=== PATIENT | male | born 1950 | race Caucasian/White ===

== ENCOUNTER 2021-10-09 20:13 | Inpatient (IN) | payer MEDICARE, BC ==
[~2021-10-09] VITALS: Ht 175.3 cm; Wt 101.6 kg
--- NOTE | 2021-10-09 20:21 | NUR ---
Pt states he is not actively suicidal and does not have any intent to commit suicide
[2021-10-09] MEDS ORDERED: SITA1TAB6 PO (20:55)
[2021-10-09] MEDS ORDERED: FEXO-65 PO (20:55)
[2021-10-09] MEDS ORDERED: EMPA25TA PO (20:55)
[2021-10-09] MEDS ORDERED: LISI10TA29 PO (20:55)
[2021-10-09] MEDS ORDERED: ASPI-612 PO (20:55)
[2021-10-09] MEDS ORDERED: NORCO PO (20:55)
[2021-10-09] MEDS ORDERED: CLOP75TA33 PO (20:55)
[2021-10-09] MEDS ORDERED: GUAI600T53 PO (20:55)
[2021-10-09] MEDS ORDERED: GLIM4TAB37 PO (20:55)
[2021-10-09] MEDS ORDERED: ESCI-9 PO (20:55)
[2021-10-09] MEDS ORDERED: THEO600T5 PO (20:55)
[2021-10-09] MEDS ORDERED: MAGN400O6 PO (20:55)
[2021-10-09] MEDS ORDERED: ATOR80TA PO (20:55)
[2021-10-09] MEDS ORDERED: OMEG-153 PO (20:55)
[2021-10-09] MEDS ORDERED: SENN-261 PO (20:55)
[2021-10-09] MEDS ORDERED: NITR0.4T SL (20:55)
[2021-10-09] MEDS ORDERED: ALPR0.5T8 PO (20:55)
[2021-10-09] MEDS ORDERED: TRIA1CAP6 PO (20:55)
[2021-10-09] MEDS ORDERED: FAMO20TA8 PO (20:55)
[2021-10-09] MEDS ORDERED: PANT40TA49 PO (20:55)
[2021-10-09] MEDS ORDERED: TAMS-3 PO (20:55)
[2021-10-09] MEDS ORDERED: METO-357 PO (20:55)
[2021-10-09] MEDS ORDERED: TRAZ-257 PO (20:55)
[2021-10-09] MEDS ORDERED: OLAN5TAB3 PO (20:55)
[2021-10-09] MEDS ORDERED: ALPR0.255 PO (20:55)
[2021-10-09] MEDS ORDERED: LOPE2CAP PO (20:55)
[2021-10-09] MEDS ORDERED: AMOX500C2 PO (20:55)
[2021-10-09 21:01] LABS: HEMATOCRIT 36.5 % (36.7-47.1); MEAN CORPUSCULAR HEMOGLOBIN 35.3 uug (23.8-33.4); MEAN CORPUSCULAR VOLUME 100.2 fL (73.0-96.2); PLATELET COUNT (AUTO) 302 K/uL (152-348)
[2021-10-09 21:07] LABS: CREATININE 1.2 mg/dL (0.6-1.3); POTASSIUM 4.2 mmol/L (3.5-5.1)
[2021-10-09] MEDS ORDERED: MAGNESIUM SULFATE/D5W 100 ML ONE ×3 (21:46→23:20)
[2021-10-09] MEDS: MAGNESIUM SULFATE/D5W 100 ML IV SCH ×3 (22:11→23:28)
--- NOTE | 2021-10-09 22:35 | NUR ---
CALLED CRISIS TEAM AND SPOKE WITH SAMIR "I'LL BE ON MY WAY".
[2021-10-10] MEDS ORDERED: NITROGLYCERIN 0.4 MG/TAB BOTTLE SL PRN (00:30)
[2021-10-10] MEDS ORDERED: LORAZEPAM 0.5 MG TABLET PO ONE (01:00)
[2021-10-10] MEDS ORDERED: LORAZEPAM 1 MG TABLET ONE (01:20)
[2021-10-10 01:22] LABS: *BILIRUBIN,URIN NEGATIVE (NEGATIVE); *BLOOD, URINE 1+ (NEGATIVE); *CLARITY,URINE CLEAR (CLEAR); *COLOR,URINE YELLOW (YELLOW); *KETONES,URINE NEGATIVE (NEGATIVE); *UROBILINOGEN,URINE 0.2 E.U./dl (NORMAL); LEUKOCYTE ESTERASE ,URINE NEGATIVE (NEGATIVE); NITRITE, URINE NEGATIVE (NEGATIVE); UGLUCOSE NEGATIVE (NEGATIVE)
--- NOTE | 2021-10-10 01:37 | NUR ---
IV removed. Catheter intact and site benign. Pressure and 4x4 gauze applied to site. No bleeding noted.
[2021-10-10 01:38] LABS: BACTERIA,URINE NONE SEEN /HPF (NONE SEEN); SQUAMOUS EPITHELIAL CELL,UR FEW /HPF (NONE SEEN); WBC,URINE 0-3 /HPF (0-3)
--- NOTE | 2021-10-10 01:40 | NUR ---
Report given to Daja
[2021-10-10 02:30] VITALS: BP 126/81
--- NOTE | 2021-10-10 02:35 | NUR ---
ADMISSION NOTE: 71 years old male admitted to MHU room 137-A from the ER accompanied by nursing staff in a wheelchair. patient's belongings and valuables were inventoried with patient and placed in contraband locker. Patient admitted with multiple medication which was inventoried by nursing staff, sealed in envelop, and sent to pharmacy. Patient's skin assessment completed by nursing staff, skin is intact. Patient provided with patient's rights handbook and 5150 hold advisement. Upon [id number] assessment, patient is depressed, but cooperative. Patient denies suicidal and homicidal ideation. Patient states he has multiple deaths in the family, and for that reasons is depressed. Patient is able to contract for safety. Patient is alert and oriented x3. he denies hallucinations of any type. Patient denies a current or history of tobacco use. Denies recreation drug use.
[2021-10-10] MEDS ORDERED: MAGNESIUM HYDROXIDE 30 ML LIQUID UDC PO PRN (03:00)
[2021-10-10] MEDS ORDERED: MAG HYDROX/AL HYDROX/SIMETH 30 ML LIQUID UDC PO PRN (03:00)
[2021-10-10] MEDS ORDERED: BLOOD SUGAR DIAGNOSTIC 1 EACH STRIP VI ONE (03:00)
[2021-10-10] MEDS: PANTOPRAZOLE SODIUM 40 MG TABLET.DR PO SCH (06:35)
[2021-10-10] MEDS: AMOXIcillin 500 MG CAPSULE PO SCH ×3 (06:35→20:40)
[2021-10-10] MEDS ORDERED: AMOXicillin 250 MG CAPSULE ONE (06:41)
--- NOTE | 2021-10-10 06:48 | NUR ---
remain calm and cooperative. slept 1.30 hrs through the night.
[2021-10-10 07:30] VITALS: BP 107/61
[2021-10-10] MEDS: LINAGLIPTIN 5 MG TABLET PO SCH (08:50)
[2021-10-10] MEDS: CLOPIDOGREL 75 MG TABLET PO SCH (08:50)
[2021-10-10] MEDS: METFORMIN HCL 500 MG TABLET PO SCH ×2 (08:50→17:02)
[2021-10-10] MEDS: ASPIRIN 325 MG TABLET PO SCH (08:50)
[2021-10-10] MEDS: EMPAGLIFLOZIN 25 MG PO SCH (08:51)
[2021-10-10] MEDS: [UNRECOGNIZED DRUG - OTHER] PO SCH (08:51)
[2021-10-10] MEDS: METOPROLOL SUCCINATE XL 50 MG TAB.SR.24H PO SCH (08:51)
[2021-10-10] MEDS: FAMOTIDINE 20 MG TABLET PO SCH (08:51)
[2021-10-10] MEDS ORDERED: Empagliflozin (Jardiance) 25 MG) PO SCH (09:00)
[2021-10-10] MEDS ORDERED: GLIMEPIRIDE 4 MG TABLET PO SCH (09:00)
--- NOTE | 2021-10-10 10:05 | NUR ---
SW Family Contact Pt's daughter, Danita ([phone]) contacted VALENTE to discuss pt's current status and discharge plan. Danita reported that she does not believe her father should make decisions on his own since he is not well at the moment due to their families recent losses. She reported the details he shares regarding his personal life are not entirely correct. Daughter reported she is available to discuss anything regarding pt's stay and discharge. Danita reported they do not have a DPOA, however she is the executor and will continue to be involved with further updates and discharge plan for the pt. Danita is worried for her father's well-being. She is very understanding and communicate and helpful with any questions moving forward.
[2021-10-10] MEDS ORDERED: PNEUMOCOCCAL 23-VAL P-SAC VAC 0.5 ML VIAL IM ONE (11:00)
[2021-10-10] MEDS: ARIPIPRAZOLE 5 MG TABLET PO SCH (11:18)
[2021-10-10] MEDS: buPROPion XL 150 MG TAB.SR.24H PO SCH (11:20)
[2021-10-10] MEDS: LORAZEPAM 1 MG TABLET PO PRN (13:23)
[2021-10-10 16:00] VITALS: BP 111/63
[2021-10-10 19:55] VITALS: BP 106/62
[2021-10-10] MEDS: ATORVASTATIN 40 MG TABLET PO SCH (20:40)
[2021-10-10] MEDS: LISINOPRIL 10 MG TABLET PO SCH (20:40)
[2021-10-10] MEDS: TAMSULOSIN HCL 0.4 MG CAP.SR.24H PO SCH (20:46)
[2021-10-10] MEDS: GUAIFENESIN LA 600 MG TABLET.SA PO SCH (20:51)
[2021-10-10] MEDS: TRAZODONE 100 MG TABLET PO SCH (20:51)
[2021-10-10] MEDS: CETIRIZINE HCL 10 MG TABLET PO SCH (20:52)
[2021-10-11] MEDS: AMOXIcillin 500 MG CAPSULE PO SCH ×3 (06:52→22:26)
[2021-10-11] MEDS: LORAZEPAM 1 MG TABLET PO PRN ×2 (06:52→13:17)
[2021-10-11] MEDS: PANTOPRAZOLE SODIUM 40 MG TABLET.DR PO SCH (07:02)
[2021-10-11 07:30] VITALS: BP 114/71
[2021-10-11] MEDS: METFORMIN HCL 500 MG TABLET PO SCH ×2 (08:16→17:15)
[2021-10-11] MEDS: ARIPIPRAZOLE 5 MG TABLET PO SCH (08:16)
[2021-10-11] MEDS: GLIMEPIRIDE 2 MG TABLET PO SCH ×2 (08:17→17:15)
[2021-10-11] MEDS: LINAGLIPTIN 5 MG TABLET PO SCH (08:17)
[2021-10-11] MEDS: METOPROLOL SUCCINATE XL 50 MG TAB.SR.24H PO SCH (08:17)
[2021-10-11] MEDS: buPROPion XL 150 MG TAB.SR.24H PO SCH (08:17)
[2021-10-11] MEDS: CLOPIDOGREL 75 MG TABLET PO SCH (08:17)
[2021-10-11] MEDS: FAMOTIDINE 20 MG TABLET PO SCH (08:17)
[2021-10-11] MEDS: EMPAGLIFLOZIN 25 MG PO SCH (08:18)
[2021-10-11] MEDS: ASPIRIN 325 MG TABLET PO SCH (08:18)
[2021-10-11] MEDS: [UNRECOGNIZED DRUG - OTHER] PO SCH (08:18)
--- NOTE | 2021-10-11 10:04 | NUR ---
[facility] Initial Discharge Note Pt currently resides at [address] [place] [id number]. Pt is unaware at the moment if he would like to return home or be discharged to a facility. Pt agreed to continue to work with SW and Psychiatrist for his discharge plan. VALENTE will continue to work with pt, family and MD to ensure a safe and proper discharge plan.
--- NOTE | 2021-10-11 10:49 | NUR ---
GPS: RECEIVED PT ON BED, AWAKE AND VERBALLY RESPONSIVE. DENIES ANY PAIN OR DISCOMFORT. PT COMPLIANT WITH MEDS AND COOPERATIVE WITH CARE. PT IS MANIPULATIVE. LIKES TO GET WHAT HE NEEDS AND ALWAYS WITH A CONDITION. PARANOID NOTED. ATTENTION SEEKING AT TIMES. PT REQUESTED FOR HIS NOTED IN HIS BELONGINGS TO BE IN HIS POSSESSION HE WOULD LIKE TO CALL SOME CONTACTS " I NEED IT FOR MY BUSINESS". PT EAILY GETS IRRITATED.
--- NOTE | 2021-10-11 11:07 | NUR ---
Firearms report: Acid Recovery Operator completed and submitted a [employer] firearms report for 5150 for a danger to himself. A copy of report has been placed in patient chart.
--- NOTE | 2021-10-11 13:31 | NUR ---
GPS: PT UPON SHOWERING, NOTED SOME RASHES ON KLEFT AND RIGHT BUTTOCKS, LEFT AND RIGHT UPPER POSTERIOR LEGS AND RIGHT KNEE OPEN WOUND. PHOTOS TAKEN
[2021-10-11 16:00] VITALS: BP 127/75
--- NOTE | 2021-10-11 18:14 | NUR ---
GPS: PT ORIENTED AND VERBALLY RESPONSIVE. WITH EPISODE OF DEPRESSION NOTED WHEN PT STAYS ALONE IN THE ROOM. OBSERVED PT TO BE FRIENDLY WITH OTHER PT. NO AGITATION AT THIS TIME. COOPERATIVE WITH CARE AND COMPLIANT WITH MEDICATIONS.
[2021-10-11 20:03] VITALS: BP 128/74
[2021-10-11] MEDS: TRAZODONE 100 MG TABLET PO SCH (20:48)
[2021-10-11] MEDS: TAMSULOSIN HCL 0.4 MG CAP.SR.24H PO SCH (20:48)
[2021-10-11] MEDS: ATORVASTATIN 40 MG TABLET PO SCH (20:48)
[2021-10-11] MEDS: GUAIFENESIN LA 600 MG TABLET.SA PO SCH (20:49)
[2021-10-11] MEDS: LISINOPRIL 10 MG TABLET PO SCH (20:49)
[2021-10-11] MEDS: CETIRIZINE HCL 10 MG TABLET PO SCH (20:50)
[2021-10-12] MEDS: AMOXIcillin 500 MG CAPSULE PO SCH ×3 (06:48→21:22)
[2021-10-12] MEDS: PANTOPRAZOLE SODIUM 40 MG TABLET.DR PO SCH (06:50)
[2021-10-12 07:30] VITALS: BP 102/58
[2021-10-12] MEDS ORDERED: DEXTROSE 50% 50 ML DISP.SYRIN IV PRN (09:00)
[2021-10-12] MEDS: METOPROLOL SUCCINATE XL 50 MG TAB.SR.24H PO SCH (09:00)
[2021-10-12] MEDS: FAMOTIDINE 20 MG TABLET PO SCH (09:19)
[2021-10-12] MEDS: LINAGLIPTIN 5 MG TABLET PO SCH (09:19)
[2021-10-12] MEDS: LORAZEPAM 1 MG TABLET PO PRN (09:19)
[2021-10-12] MEDS: METFORMIN HCL 500 MG TABLET PO SCH ×2 (09:19→18:36)
[2021-10-12] MEDS: CLOPIDOGREL 75 MG TABLET PO SCH (09:19)
[2021-10-12] MEDS: ARIPIPRAZOLE 5 MG TABLET PO SCH (09:20)
[2021-10-12] MEDS: [UNRECOGNIZED DRUG - OTHER] PO SCH (09:21)
[2021-10-12] MEDS: EMPAGLIFLOZIN 25 MG PO SCH (09:21)
[2021-10-12] MEDS: GLIMEPIRIDE 2 MG TABLET PO SCH ×2 (09:21→18:37)
[2021-10-12] MEDS: buPROPion XL 150 MG TAB.SR.24H PO SCH (09:21)
[2021-10-12] MEDS: ASPIRIN 325 MG TABLET PO SCH (09:21)
--- NOTE | 2021-10-12 10:48 | NUR ---
SW Family Contact SW contacted pt' sister, Adeline ([phone]) who stated that she would like her brother in a nursing facility upon discharge and she agrees with any location that the pt's doctor and SW select. She is agreeable with any discharge plans decided for the pt. Adeline was very helpful and expressed she would like her brother to receive therapy in addition to seeing his psychiatrist at the chosen facility upon discharge. Adeline also stated that to her knowledge, the pt has improved a lot over the past month and the current behavior is due a lot to their families recent losses. Adeline also stated that there has been suicides of people they know (did not want to clarify who) and that is why it is important for her brother to receive psychotherapy at the chosen facility.
--- NOTE | 2021-10-12 11:08 | NUR ---
GPS: PT RECEIVED TODAY IN THE ROOM, CALM ON BED. PT ANSWERS BACK WITH SARCASM AND ALMOST REFUSED MEDICATION BECAUSE HE WANTS TO HAVE A HOT COFFEE FIRST. PT REQUESTED FOR ATIVAN TOGETHER WITH MEDS HE FEELS ANXIOUS. MEDICATION TOLERATED WELL. EASY IRRITABLE.
[2021-10-12] MEDS: BLOOD SUGAR DIAGNOSTIC 1 EACH STRIP VI SCH ×3 (11:30→21:20)
[2021-10-12] MEDS: ASPIRIN EC 325 MG TABLET.DR PO SCH (11:36)
--- NOTE | 2021-10-12 13:28 | NUR ---
WOUND CARE CONSULT: PT PRESENTS WITH SLIGHT RASH TO INNER BUTTOCKS AND ABRASION TO RT KNEE, PRESENT ON ADMISSION. RECOMMENDATIONS MADE FOR SKIN PROTECTION AND WOUND CARE. DISCUSSED WITH NURSING STAFF. MD IN AGREEMENT WITH PLAN OF CARE.
[2021-10-12] MEDS: INSULIN REGULAR, HUMAN 300 UNIT/3 ML VIAL SQ PRN (13:56)
[2021-10-12 16:00] VITALS: BP 103/73
[2021-10-12] MEDS: NEOMY/BACITRAC/POLYMI OINT 28.35 GM TUBE TOP SCH (18:35)
[2021-10-12] MEDS: Z GUARD REMEDY PASTE 57 GM TUBE TOP SCH (18:36)
[2021-10-12] MEDS: CLOTRIMAZOLE 1% CREAM 30 GM TUBE TOP SCH (18:36)
[2021-10-12 20:00] VITALS: BP 104/67
[2021-10-12] MEDS: TAMSULOSIN HCL 0.4 MG CAP.SR.24H PO SCH (21:17)
[2021-10-12] MEDS: TRAZODONE 100 MG TABLET PO SCH (21:17)
[2021-10-12] MEDS: ATORVASTATIN 40 MG TABLET PO SCH (21:18)
[2021-10-12] MEDS: LISINOPRIL 10 MG TABLET PO SCH (21:18)
[2021-10-12] MEDS: GUAIFENESIN LA 600 MG TABLET.SA PO SCH (21:21)
[2021-10-12] MEDS: CETIRIZINE HCL 10 MG TABLET PO SCH (21:21)
[2021-10-13] MEDS: PANTOPRAZOLE SODIUM 40 MG TABLET.DR PO SCH (06:12)
[2021-10-13] MEDS: BLOOD SUGAR DIAGNOSTIC 1 EACH STRIP VI SCH ×4 (06:30→21:25)
[2021-10-13 07:30] VITALS: BP 108/48
[2021-10-13] MEDS: buPROPion XL 150 MG TAB.SR.24H PO SCH (08:24)
[2021-10-13] MEDS: ASPIRIN EC 325 MG TABLET.DR PO SCH (08:24)
[2021-10-13] MEDS: [UNRECOGNIZED DRUG - OTHER] PO SCH (08:24)
[2021-10-13] MEDS: FAMOTIDINE 20 MG TABLET PO SCH (08:24)
[2021-10-13] MEDS: CLOPIDOGREL 75 MG TABLET PO SCH (08:24)
[2021-10-13] MEDS: EMPAGLIFLOZIN 25 MG PO SCH (08:24)
[2021-10-13] MEDS: METFORMIN HCL 500 MG TABLET PO SCH ×2 (08:24→16:56)
[2021-10-13] MEDS: LINAGLIPTIN 5 MG TABLET PO SCH (08:24)
[2021-10-13] MEDS: ARIPIPRAZOLE 5 MG TABLET PO SCH (08:24)
[2021-10-13] MEDS: GLIMEPIRIDE 2 MG TABLET PO SCH ×2 (08:25→16:57)
[2021-10-13] MEDS: CLOTRIMAZOLE 1% CREAM 30 GM TUBE TOP SCH ×2 (08:25→16:58)
[2021-10-13] MEDS: Z GUARD REMEDY PASTE 57 GM TUBE TOP SCH ×2 (08:25→16:58)
[2021-10-13] MEDS: NEOMY/BACITRAC/POLYMI OINT 28.35 GM TUBE TOP SCH (08:25)
[2021-10-13] MEDS: METOPROLOL SUCCINATE XL 50 MG TAB.SR.24H PO SCH (08:26)
[2021-10-13 09:31] LABS: HEMATOCRIT 37.5 % (36.7-47.1); MEAN CORPUSCULAR HEMOGLOBIN 34.9 uug (23.8-33.4); MEAN CORPUSCULAR VOLUME 100.8 fL (73.0-96.2); PLATELET COUNT (AUTO) 245 K/uL (152-348)
[2021-10-13 10:19] LABS: BILIRUBIN,TOTAL 0.6 mg/dL (0.2-1.0); CREATININE 1.2 mg/dL (0.6-1.3); MAGNESIUM 1.4 mg/dL (1.8-2.4); TOTAL PROTEIN, SERUM 7.4 g/dL (6.4-8.2)
[2021-10-13] MEDS: LORAZEPAM 1 MG TABLET PO PRN ×2 (10:26→21:25)
--- NOTE | 2021-10-13 11:01 | NUR ---
GPS: PT COMPLAINED OF DISCOMFORT WHILE URINATING. STATED "FEELS LIKE THERE'S A STOPPER OR CRUST ON MY URETHRAL OPENING". 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 PER PT, SOMETHING FEELS LIKE STOPPING OR CLOGGING ON IT AND FEELS DISCOMFORT AND AFTER THAT, URINE COMES OUT AND FEELS RELIEF. EXAMINED AND NO BLADDER DISTENTION NOTED. REPORTED TO SINAN JOSEPH NP AND REQUESTED FOR BLADDER SCAN AND URINALYSIS FOR PT.
[2021-10-13 11:16] LABS: THYROID STIMULATING HORMONE 2.064 mIU/mL (0.358-3.740)
--- NOTE | 2021-10-13 11:54 | NUR ---
Social Work Coordination of Care: Parachute Taper faxed patient's referral packet including: History and Physical, Consultation, Progress Notes, Medication List and Labs to the following facilities for review and possible custodial placement: [facility] ([phone]). SW also spoke on the phone with program coordinator executive education, Aminata ([phone]) and informed her the fax for the referral was sent. Admission to the facility is pending.
[2021-10-13] MEDS ORDERED: PNEUMOCOCCAL 23-VAL P-SAC VAC 0.5 ML VIAL IM ONE (13:00)
--- NOTE | 2021-10-13 13:44 | NUR ---
GPS: PT MADE A VERBAL CONSENT THAT HE WANTS TO HAVE A PNA VACCINE. PNEUMONIA VACCINE ADMINISTERED ON LEFT DELTOID, MERCK [id number] EXP DATE 07/11/22. PT TOLERATED WELL. WILL MONITOR PT FOR ANY REACTION.
[2021-10-13 14:47] LABS: *BILIRUBIN,URIN NEGATIVE (NEGATIVE); *BLOOD, URINE NEGATIVE (NEGATIVE); *CLARITY,URINE CLEAR (CLEAR); *COLOR,URINE YELLOW (YELLOW); *KETONES,URINE NEGATIVE (NEGATIVE); *UROBILINOGEN,URINE 0.2 E.U./dl (NORMAL); LEUKOCYTE ESTERASE ,URINE NEGATIVE (NEGATIVE); NITRITE, URINE NEGATIVE (NEGATIVE); UGLUCOSE 2+ (NEGATIVE)
[2021-10-13 16:56] VITALS: BP 110/57
--- NOTE | 2021-10-13 18:04 | NUR ---
GPS: DAUGHTER CAME FOR A VISIT AND BROUGHT FOOD FOR PT AND ROOMMATE. PT COMPLIANT WITH CARE. TOLERATED WELL THE MEDS. DENIES ANY DISCOMFORT.
[2021-10-13] MEDS: ACETAMINOPHEN 325 MG TABLET PO PRN (19:55)
[2021-10-13 20:00] VITALS: BP 107/69
--- NOTE | 2021-10-13 20:00 | NUR ---
RECEIVED PATIENT IN HIS ROOM IN BED. HE IS NOTED AWAKE A/O X 3. ABLE TO VERBALIZED HIS FEELINGS. PATIENT DENIED SI. HE STATE, "I FEEL DEPRESSED BUT NO SUICIDAL. I AM SAD BECAUSE SO MANY BAD THINGS HAVE HAPPENED TO ME. FIRST, MY 3 MONTHS AGO, THEN I GOT KIDNEY STONES". PATIENT IS ABLE TO VERBALLY CFS. HE COMPLAINED OF LEFT FLANK PAIN. UA NEGATIVE FOR UTI. PATIENT WAS GIVEN TYLENOL 650MG. V/S STABLE. HE WAS GIVEN PO FLUIDS AND SNACKS. HE IS REASSURED FOR HIS SAFETY. SAFETY AND FALL PRECAUTION IN PLACE. WILL CONTINUE TO MONITOR.
[2021-10-13] MEDS: ATORVASTATIN 40 MG TABLET PO SCH (20:06)
[2021-10-13] MEDS: TRAZODONE 100 MG TABLET PO SCH (20:07)
[2021-10-13] MEDS: GUAIFENESIN LA 600 MG TABLET.SA PO SCH (20:08)
[2021-10-13] MEDS: CETIRIZINE HCL 10 MG TABLET PO SCH (20:08)
[2021-10-13] MEDS: LISINOPRIL 10 MG TABLET PO SCH (20:57)
[2021-10-13] MEDS: TAMSULOSIN HCL 0.4 MG CAP.SR.24H PO SCH (20:57)
[2021-10-13] MEDS: INSULIN REGULAR, HUMAN 300 UNIT/3 ML VIAL SQ PRN (21:24)
[2021-10-13 23:21] LABS: RBC,URINE 0-3 /HPF (0-3)
[2021-10-13 23:22] LABS: BACTERIA,URINE NONE SEEN /HPF (NONE SEEN); SQUAMOUS EPITHELIAL CELL,UR NONE SEEN /HPF (NONE SEEN); URIC ACID CRYSTALS,URINE MODERATE /HPF (NONE SEEN); WBC,URINE NONE SEEN /HPF (0-3)
[2021-10-13] MEDS: ZOLPIDEM 5 MG TABLET PO PRN (23:48)
[2021-10-14] MEDS: PANTOPRAZOLE SODIUM 40 MG TABLET.DR PO SCH (06:12)
[2021-10-14] MEDS: BLOOD SUGAR DIAGNOSTIC 1 EACH STRIP VI SCH ×4 (06:43→20:06)
[2021-10-14 07:30] VITALS: BP 114/74
[2021-10-14] MEDS: LINAGLIPTIN 5 MG TABLET PO SCH (08:12)
[2021-10-14] MEDS: METFORMIN HCL 500 MG TABLET PO SCH ×2 (08:12→17:02)
[2021-10-14] MEDS: FAMOTIDINE 20 MG TABLET PO SCH (08:13)
[2021-10-14] MEDS: ARIPIPRAZOLE 5 MG TABLET PO SCH (08:13)
[2021-10-14] MEDS: CLOPIDOGREL 75 MG TABLET PO SCH (08:13)
[2021-10-14] MEDS: ASPIRIN EC 325 MG TABLET.DR PO SCH (08:13)
[2021-10-14] MEDS: GLIMEPIRIDE 2 MG TABLET PO SCH ×2 (08:14→17:02)
[2021-10-14] MEDS: [UNRECOGNIZED DRUG - OTHER] PO SCH (08:15)
[2021-10-14] MEDS: EMPAGLIFLOZIN 25 MG PO SCH (08:15)
[2021-10-14] MEDS: buPROPion XL 150 MG TAB.SR.24H PO SCH (08:16)
[2021-10-14] MEDS: METOPROLOL SUCCINATE XL 50 MG TAB.SR.24H PO SCH (08:17)
[2021-10-14] MEDS: NEOMY/BACITRAC/POLYMI OINT 28.35 GM TUBE TOP SCH (08:18)
[2021-10-14] MEDS: CLOTRIMAZOLE 1% CREAM 30 GM TUBE TOP SCH ×2 (08:20→17:03)
[2021-10-14] MEDS: Z GUARD REMEDY PASTE 57 GM TUBE TOP SCH ×2 (08:20→17:04)
[2021-10-14] MEDS: INSULIN REGULAR, HUMAN 300 UNIT/3 ML VIAL SQ PRN ×3 (08:41→17:06)
[2021-10-14 16:00] VITALS: BP 118/73
[2021-10-14] MEDS: LORAZEPAM 1 MG TABLET PO PRN (18:11)
[2021-10-14 20:00] VITALS: BP 109/63
--- NOTE | 2021-10-14 20:00 | NUR ---
RECEIVED PATIENT IN THE HALLWAY. HE IS NOTED ANXIOUS, LABILE. HE WAS GIVEN ATIVAN 1MG EARLIER. PT IS ABLE TO VERBALIZED HIS FEELINGS AND MAKE HIS NEEDS KNOWN. HIS MOOD IS LOW; HOWEVER, PATIENT CONTINUE DENYING SI/HI/VH/AH. HES IS ABLE TO VERBALLY CFS. HE IS FOCUS ON HIS DISCHARGED. HIS V/S ARE STABLE. HE WAS GIVEN PO FLUIDS AND SNACKS. HE IS REASSURED FOR HIS SAFETY. SAFETY AND FALL PRECAUTION IN PLACE. WILL CONTINUE TO MONITOR.
[2021-10-14] MEDS: ACETAMINOPHEN 325 MG TABLET PO PRN (20:03)
[2021-10-14] MEDS: ATORVASTATIN 40 MG TABLET PO SCH (20:04)
[2021-10-14] MEDS: TAMSULOSIN HCL 0.4 MG CAP.SR.24H PO SCH (20:04)
[2021-10-14] MEDS: GUAIFENESIN LA 600 MG TABLET.SA PO SCH (20:05)
[2021-10-14] MEDS: TRAZODONE 100 MG TABLET PO SCH (20:05)
[2021-10-14] MEDS: CETIRIZINE HCL 10 MG TABLET PO SCH (20:05)
[2021-10-14] MEDS: LISINOPRIL 10 MG TABLET PO SCH (20:06)
[2021-10-14] MEDS: ZOLPIDEM 5 MG TABLET PO PRN (22:53)
[2021-10-15] MEDS: BLOOD SUGAR DIAGNOSTIC 1 EACH STRIP VI SCH ×4 (06:22→20:55)
[2021-10-15] MEDS: PANTOPRAZOLE SODIUM 40 MG TABLET.DR PO SCH (06:22)
[2021-10-15 07:42] VITALS: BP 116/67
[2021-10-15] MEDS: ARIPIPRAZOLE 5 MG TABLET PO SCH (08:06)
[2021-10-15] MEDS: CLOPIDOGREL 75 MG TABLET PO SCH (08:06)
[2021-10-15] MEDS: FAMOTIDINE 20 MG TABLET PO SCH (08:06)
[2021-10-15] MEDS: ASPIRIN EC 325 MG TABLET.DR PO SCH (08:06)
[2021-10-15] MEDS: LINAGLIPTIN 5 MG TABLET PO SCH (08:06)
[2021-10-15] MEDS: METFORMIN HCL 500 MG TABLET PO SCH ×2 (08:06→17:08)
[2021-10-15] MEDS: Z GUARD REMEDY PASTE 57 GM TUBE TOP SCH ×2 (08:07→16:37)
[2021-10-15] MEDS: CLOTRIMAZOLE 1% CREAM 30 GM TUBE TOP SCH ×2 (08:07→16:37)
[2021-10-15] MEDS: METOPROLOL SUCCINATE XL 50 MG TAB.SR.24H PO SCH (08:07)
[2021-10-15] MEDS: NEOMY/BACITRAC/POLYMI OINT 28.35 GM TUBE TOP SCH (08:07)
[2021-10-15] MEDS: [UNRECOGNIZED DRUG - OTHER] PO SCH (08:10)
[2021-10-15] MEDS: GLIMEPIRIDE 2 MG TABLET PO SCH ×2 (08:10→16:37)
[2021-10-15] MEDS: buPROPion XL 150 MG TAB.SR.24H PO SCH (08:10)
[2021-10-15] MEDS: EMPAGLIFLOZIN 25 MG PO SCH (08:10)
[2021-10-15] MEDS: LOPERAMIDE HCL 2 MG CAPSULE PO PRN ×2 (10:42→20:54)
[2021-10-15] MEDS: LORAZEPAM 1 MG TABLET PO PRN ×2 (11:10→22:13)
[2021-10-15] MEDS: INSULIN REGULAR, HUMAN 300 UNIT/3 ML VIAL SQ PRN (12:28)
[2021-10-15 15:46] VITALS: BP 113/72
[2021-10-15 20:03] VITALS: BP 118/66
[2021-10-15] MEDS: TAMSULOSIN HCL 0.4 MG CAP.SR.24H PO SCH (20:53)
[2021-10-15] MEDS: GUAIFENESIN LA 600 MG TABLET.SA PO SCH (20:53)
[2021-10-15] MEDS: CETIRIZINE HCL 10 MG TABLET PO SCH (20:53)
[2021-10-15] MEDS: ATORVASTATIN 40 MG TABLET PO SCH (20:54)
[2021-10-15] MEDS: TRAZODONE 100 MG TABLET PO SCH (20:54)
[2021-10-15] MEDS: LISINOPRIL 10 MG TABLET PO SCH (20:55)
[2021-10-16] MEDS: BLOOD SUGAR DIAGNOSTIC 1 EACH STRIP VI SCH ×4 (06:34→20:19)
[2021-10-16] MEDS: PANTOPRAZOLE SODIUM 40 MG TABLET.DR PO SCH (06:34)
[2021-10-16 07:40] VITALS: BP 106/64
[2021-10-16] MEDS: FAMOTIDINE 20 MG TABLET PO SCH (08:56)
[2021-10-16] MEDS: buPROPion XL 150 MG TAB.SR.24H PO SCH (08:56)
[2021-10-16] MEDS: GLIMEPIRIDE 2 MG TABLET PO SCH ×2 (08:56→16:42)
[2021-10-16] MEDS: CLOPIDOGREL 75 MG TABLET PO SCH (08:56)
[2021-10-16] MEDS: LINAGLIPTIN 5 MG TABLET PO SCH (08:56)
[2021-10-16] MEDS: ARIPIPRAZOLE 5 MG TABLET PO SCH (08:56)
[2021-10-16] MEDS: ASPIRIN EC 325 MG TABLET.DR PO SCH (08:56)
[2021-10-16] MEDS: METFORMIN HCL 500 MG TABLET PO SCH ×2 (08:56→17:57)
[2021-10-16] MEDS: METOPROLOL SUCCINATE XL 50 MG TAB.SR.24H PO SCH (08:57)
[2021-10-16] MEDS: [UNRECOGNIZED DRUG - OTHER] PO SCH (08:58)
[2021-10-16] MEDS: EMPAGLIFLOZIN 25 MG PO SCH (08:58)
[2021-10-16] MEDS: CLOTRIMAZOLE 1% CREAM 30 GM TUBE TOP SCH ×2 (08:59→16:43)
[2021-10-16] MEDS: NEOMY/BACITRAC/POLYMI OINT 28.35 GM TUBE TOP SCH (09:00)
[2021-10-16] MEDS: Z GUARD REMEDY PASTE 57 GM TUBE TOP SCH ×2 (09:00→16:43)
[2021-10-16] MEDS: LORAZEPAM 1 MG TABLET PO PRN ×2 (11:14→18:47)
--- NOTE | 2021-10-16 12:42 | NUR ---
VALENTE Family Contact Note VALENTE contacted daughter Danita (executor) and left a voicemail about pt's discharge update regarding accepted facility at [facility]. VALENTE also contacted and spoke to pt's sister brittny ([phone]) and his son Rahul ([phone]) and informed them of the discharge update. The family is aware and agreeable with the discharge plan.
[2021-10-16] MEDS: LOPERAMIDE HCL 2 MG CAPSULE PO PRN (15:17)
[2021-10-16 15:40] VITALS: BP 114/71
[2021-10-16] MEDS: INSULIN REGULAR, HUMAN 300 UNIT/3 ML VIAL SQ PRN (16:50)
[2021-10-16 20:00] VITALS: BP 122/60
[2021-10-16] MEDS: TAMSULOSIN HCL 0.4 MG CAP.SR.24H PO SCH (20:10)
[2021-10-16] MEDS: LISINOPRIL 10 MG TABLET PO SCH (20:10)
[2021-10-16] MEDS: CETIRIZINE HCL 10 MG TABLET PO SCH (20:11)
[2021-10-16] MEDS: TRAZODONE 100 MG TABLET PO SCH (20:11)
[2021-10-16] MEDS: ATORVASTATIN 40 MG TABLET PO SCH (20:11)
[2021-10-16] MEDS: GUAIFENESIN LA 600 MG TABLET.SA PO SCH (20:11)
--- NOTE | 2021-10-17 06:01 | NUR ---
GPS: Patient remain calm and cooperative. slept 5 hrs through the night. no agitation noted. resting in bed comfortably.
[2021-10-17] MEDS: PANTOPRAZOLE SODIUM 40 MG TABLET.DR PO SCH (06:37)
[2021-10-17] MEDS: BLOOD SUGAR DIAGNOSTIC 1 EACH STRIP VI SCH ×4 (06:38→20:42)
[2021-10-17 08:30] VITALS: BP 108/61
[2021-10-17] MEDS: LINAGLIPTIN 5 MG TABLET PO SCH (09:07)
[2021-10-17] MEDS: GLIMEPIRIDE 2 MG TABLET PO SCH ×2 (09:07→16:36)
[2021-10-17] MEDS: METOPROLOL SUCCINATE XL 50 MG TAB.SR.24H PO SCH (09:07)
[2021-10-17] MEDS: ARIPIPRAZOLE 5 MG TABLET PO SCH (09:07)
[2021-10-17] MEDS: METFORMIN HCL 500 MG TABLET PO SCH ×2 (09:08→17:12)
[2021-10-17] MEDS: CLOPIDOGREL 75 MG TABLET PO SCH (09:08)
[2021-10-17] MEDS: FAMOTIDINE 20 MG TABLET PO SCH (09:08)
[2021-10-17] MEDS: ASPIRIN EC 325 MG TABLET.DR PO SCH (09:08)
[2021-10-17] MEDS: [UNRECOGNIZED DRUG - OTHER] PO SCH (09:09)
[2021-10-17] MEDS: EMPAGLIFLOZIN 25 MG PO SCH (09:09)
[2021-10-17] MEDS: CLOTRIMAZOLE 1% CREAM 30 GM TUBE TOP SCH ×2 (09:09→16:36)
[2021-10-17] MEDS: buPROPion XL 150 MG TAB.SR.24H PO SCH (09:09)
[2021-10-17] MEDS: NEOMY/BACITRAC/POLYMI OINT 28.35 GM TUBE TOP SCH (09:10)
[2021-10-17] MEDS: Z GUARD REMEDY PASTE 57 GM TUBE TOP SCH ×2 (09:10→16:37)
[2021-10-17] MEDS: LORAZEPAM 1 MG TABLET PO PRN (13:16)
[2021-10-17] MEDS: INSULIN REGULAR, HUMAN 300 UNIT/3 ML VIAL SQ PRN (17:25)
[2021-10-17 17:54] VITALS: BP 92/48
[2021-10-17] MEDS: GUAIFENESIN LA 600 MG TABLET.SA PO SCH (20:41)
[2021-10-17] MEDS: TRAZODONE 100 MG TABLET PO SCH (20:41)
[2021-10-17] MEDS: TAMSULOSIN HCL 0.4 MG CAP.SR.24H PO SCH (20:41)
[2021-10-17] MEDS: LOPERAMIDE HCL 2 MG CAPSULE PO PRN (20:42)
[2021-10-17] MEDS: CETIRIZINE HCL 10 MG TABLET PO SCH (20:42)
[2021-10-17] MEDS: ATORVASTATIN 40 MG TABLET PO SCH (20:42)
[2021-10-17] MEDS: LISINOPRIL 10 MG TABLET PO SCH (20:43)
[2021-10-18] MEDS: ZOLPIDEM 5 MG TABLET PO PRN (00:57)
[2021-10-18] MEDS: LOPERAMIDE HCL 2 MG CAPSULE PO PRN (00:57)
--- NOTE | 2021-10-18 03:58 | NUR ---
Patient argumentative and demanding with the staff. Patient refused to have VS taken, therefore since the b/p has been low during the day, the patients Lisinopril was held . Patient has been c/o diarrhea and was medicated per order for that. This patient had also refused to have his blood sugar checked at the start of the shift. The plan is for the patient to be discharge this am. Continuing to monitor his compliance and for safety.
[2021-10-18] MEDS: PANTOPRAZOLE SODIUM 40 MG TABLET.DR PO SCH (05:56)
[2021-10-18] MEDS: BLOOD SUGAR DIAGNOSTIC 1 EACH STRIP VI SCH ×2 (05:57→11:55)
[2021-10-18 07:30] VITALS: BP 119/58
[2021-10-18 08:24] VITALS: BP 119/58
[2021-10-18] MEDS: CLOPIDOGREL 75 MG TABLET PO SCH (08:24)
[2021-10-18] MEDS: METFORMIN HCL 500 MG TABLET PO SCH (08:24)
[2021-10-18] MEDS: METOPROLOL SUCCINATE XL 50 MG TAB.SR.24H PO SCH (08:24)
[2021-10-18] MEDS: [UNRECOGNIZED DRUG - OTHER] PO SCH (08:25)
[2021-10-18] MEDS: ARIPIPRAZOLE 5 MG TABLET PO SCH (08:25)
[2021-10-18] MEDS: LINAGLIPTIN 5 MG TABLET PO SCH (08:25)
[2021-10-18] MEDS: ASPIRIN EC 325 MG TABLET.DR PO SCH (08:25)
[2021-10-18] MEDS: EMPAGLIFLOZIN 25 MG PO SCH (08:25)
[2021-10-18] MEDS: GLIMEPIRIDE 2 MG TABLET PO SCH (08:26)
[2021-10-18] MEDS: FAMOTIDINE 20 MG TABLET PO SCH (08:26)
[2021-10-18] MEDS: buPROPion XL 150 MG TAB.SR.24H PO SCH (08:26)
[2021-10-18] MEDS: Z GUARD REMEDY PASTE 57 GM TUBE TOP SCH (08:27)
[2021-10-18] MEDS: NEOMY/BACITRAC/POLYMI OINT 28.35 GM TUBE TOP SCH (08:27)
[2021-10-18] MEDS: CLOTRIMAZOLE 1% CREAM 30 GM TUBE TOP SCH (08:28)
--- NOTE | 2021-10-18 09:03 | NUR ---
[facility] Discharge Note Pt will be discharged to [facility] ([phone]) [address] [place] [address] via Ambulance transportation at 1PM. VALENTE spoke with admin coordinator, Aminata ([phone]) at the facility who states they are ready to accept the patient today. Pt is aware and agreeable with discharge plans. Pt is alert and oriented x4, is unable to plan for self-care at this time; however, is willing to accept care at SNF. Pts daughter, Susan , pts sister, Adeline ([phone]), and pts son, Rahul ([phone]) are aware and agreeable with the discharge plan. Pt denies any suicidal or homicidal ideation. Pt will follow-up at the facility with Psychiatrist, Dr. Snell and Visual Specialist, Dr. Olivo. Pt presents with calm mood and congruent affect.
[2021-10-18] MEDS: LORAZEPAM 1 MG TABLET PO PRN (10:41)
--- NOTE | 2021-10-18 11:56 | NUR ---
GPS: RECEIVED PT ON BED. AWAKE, ALERT AND ORIENTED X 3. PT WILL BE DISCHARGED TODAY AT [facility]IA [facility]BULANCE AT 1200. PT DENIES ANY PAIN OR DISCOMFORT. PT ANXIOUS AN HOUR AGO AND RECEIVED ATIVAN PO, GIVEN AND TOLERATED WELL. PT DENIES ANY SUICIDAL/HOMICIDAL IDEATION. PT COOPERATIVE WITH CARE AND COMPLIANT WITH MEDICATIONS.
--- NOTE | 2021-10-18 13:16 | NUR ---
GPS: PT STILL IN UNIT WAITING FOR DISCHARGE AND WAITING FOR CONFIRMATION FROM THE SNF.
--- NOTE | 2021-10-18 15:43 | NUR ---
[facility] Ambulance Transfer Note SW contacted [facility] and spoke to Lyle who confirmed ambulance pickup for pt from [facility] today.
--- NOTE | 2021-10-18 15:45 | NUR ---
GPS: PT WAS DISCHARGED FROM THE MHU AND WILL BE TRANSPORTED TO [facility]IA AMBULANCE. DENIES ANY PAIN OR DISCOMFORT. ALL BELONGINGS GIVEN AND SIGNED FOR. PT ALERT AND ORIENTED X 4. COOPERATIVE WITH CARE AND COMPLIANT WITH CARE.
== END 2021-10-18 16:34 | DRG 885 ==
LOC: ER 20:17 → GPS 10-10 01:20
PROVIDERS: ADMIT Psychiatry & Neurology Psychiatry; ATTEND Internal Medicine
DX: F33.2 Major depressive disorder, recurrent severe without psychotic features (principal); N17.0 Acute kidney failure with tubular necrosis; R45.851 Suicidal ideations; N39.0 Urinary tract infection, site not specified; E83.42 Hypomagnesemia; E66.9 Obesity, unspecified; Z68.32 Body mass index [BMI] 32.0-32.9, adult; D51.3 Other dietary vitamin B12 deficiency anemia; K21.9 Gastro-esophageal reflux disease without esophagitis; Z20.822 Contact with and (suspected) exposure to COVID-19; E78.5 Hyperlipidemia, unspecified; Z79.899 Other long term (current) drug therapy; E11.9 Type 2 diabetes mellitus without complications; Z79.84 Long term (current) use of oral hypoglycemic drugs; I25.10 Atherosclerotic heart disease of native coronary artery without angina pectoris; I11.9 Hypertensive heart disease without heart failure; N40.0 Benign prostatic hyperplasia without lower urinary tract symptoms; Z87.442 Personal history of urinary calculi; Z79.02 Long term (current) use of antithrombotics/antiplatelets; R19.7 Diarrhea, unspecified
CPT/HCPCS: 36415; 70030-TC; 71045; 83735; 84100; 84153; 84443; 84481; 85025; 90732; 93005; A4663; J1815; J3475